=== PATIENT | male | born 1985 | race African-American/Black ===

== ENCOUNTER 2018-06-29 20:00 | Emergency (ER) | payer SELFPAY ==
[~2018-06-29] VITALS: Ht 180.3 cm; Wt 82.0 kg
[2018-06-29] MEDS ORDERED: IPRATROPIUM BROMIDE (0.02%) 0.5MG/2.5ML NEB HHN STA (22:56)
[2018-06-29] MEDS ORDERED: ALBUTEROL (0.083%) 2.5MG/3ML NEB HHN STA (22:56)
[2018-06-30] MEDS ORDERED: ALBUTEROL (0.083%) 2.5MG/3ML NEB HHN STA (00:57)
[2018-06-30] MEDS ORDERED: METHYLPREDNISOLONE SOD SUCC 125 MG/2 ML VIAL IM STA (00:57)
[2018-06-30] MEDS ORDERED: IPRATROPIUM BROMIDE (0.02%) 0.5MG/2.5ML NEB HHN STA (00:57)
[2018-06-30 02:07] VITALS: BP 146/73
== END 2018-06-30 02:10 | disposition home or self-care (01) ==
LOC: ER 20:00
DX: J06.9 Acute upper respiratory infection, unspecified (principal); J45.909 Unspecified asthma, uncomplicated
CPT/HCPCS: 71045; 94640; 96372; 99284; J2930; J7611; Z7610

== ENCOUNTER 2018-08-21 12:26 | Emergency (ER) | payer SELFPAY ==
[~2018-08-21] VITALS: Ht 180.3 cm; Wt 92.0 kg
[2018-08-21 15:54] LABS: BASOPHILS % 0.8 % (0.0-2.0); EOSINOPHILS % 1.2 % (0.0-5.0); HEMATOCRIT. 46.6 % (42.0-52.0); HEMOGLOBIN. 15.6 g/dL (14.0-18.0); LYMPHOCYTES % 40.2 % (20.0-50.0); MEAN CORPUSCULAR HEMOGLOBIN 31.9 pg (28.0-32.0); MEAN CORPUSCULAR VOLUME 95.4 fL (80.0-94.0); MEAN PLATELET VOLUME 8.4 fl (7.4-10.4); MONOCYTES % 9.8 % (2.0-8.0); PLATELET 193 x1000/uL (130-400); RED BLOOD CELL COUNT 4.89 mill/uL (4.7-6.1)
[2018-08-21 17:25] VITALS: BP 126/54
== END 2018-08-21 18:06 | disposition home or self-care (01) ==
LOC: ER 12:26
DX: K62.5 Hemorrhage of anus and rectum (principal); K62.89 Other specified diseases of anus and rectum; K64.9 Unspecified hemorrhoids; J45.909 Unspecified asthma, uncomplicated; F12.10 Cannabis abuse, uncomplicated; Z88.6 Allergy status to analgesic agent
CPT/HCPCS: 36415; 99283

== ENCOUNTER 2021-11-17 19:40 | Emergency (ER) | payer MEDICAID ==
[~2021-11-17] VITALS: Ht 177.8 cm; Wt 82.0 kg
[2021-11-17] MEDS ORDERED: ACETAMINOPHEN 325MG TABLET PO ONE (20:00)
[2021-11-17] MEDS: ACETAMINOPHEN 325MG TABLET PO NR ×2 (21:43→21:44)
[2021-11-17] MEDS ORDERED: CYCL10TA21 MT (23:08)
[2021-11-17] MEDS ORDERED: TOPUD MT (23:08)
[2021-11-17 23:31] VITALS: BP 125/78
== END 2021-11-17 23:30 | disposition home or self-care (01) ==
LOC: ER 19:40
DX: M25.562 Pain in left knee (principal); J45.909 Unspecified asthma, uncomplicated; B20 Human immunodeficiency virus [HIV] disease; Z88.6 Allergy status to analgesic agent
CPT/HCPCS: 73560; 99283